=== PATIENT | male | born 1960 | race Caucasian/White ===

== ENCOUNTER 2022-04-30 08:08 | Outpatient (CLI) | payer OTHER, SELFPAY | END 2022-04-30 08:09 | disposition home or self-care (01) | PROVIDERS: PCP Family Medicine; Visit Provider Family Medicine | DX: M51.36 Other intervertebral disc degeneration, lumbar region (principal); M54.16 Radiculopathy, lumbar region | CPT/HCPCS: 62323; 64483; J0702; J2001; Q9966 ==

== ENCOUNTER 2023-04-08 08:14 | Outpatient (CLI) | payer OTHER, SELFPAY | END 2023-04-08 08:15 | disposition home or self-care (01) | PROVIDERS: PCP Family Medicine; Visit Provider Family Medicine | DX: M54.16 Radiculopathy, lumbar region (principal); M51.36 Other intervertebral disc degeneration, lumbar region | CPT/HCPCS: 62323; J0702; Q9966 ==

== ENCOUNTER 2025-02-22 10:09 | Outpatient (CLI) | payer OTHER, SELFPAY | END 2025-02-22 10:10 | disposition home or self-care (01) | LOC: INJ CL 10:11 | PROVIDERS: PCP Family Medicine; Visit Provider Family Medicine | DX: M54.16 Radiculopathy, lumbar region (principal); M48.062 Spinal stenosis, lumbar region with neurogenic claudication | CPT/HCPCS: 64483; Q9966 ==